=== PATIENT | male | born 1970 | race Caucasian/White ===

== ENCOUNTER 2016-09-08 14:44 | Inpatient (IN) | payer MEDICARE, MEDICAID ==
[~2016-09-08] VITALS: Ht 172.7 cm; Wt 68.9 kg
[~2016-09-08 14:44] MED LIST: BENA25CA2 PO; CIPR-250 PO; FLAG500T PO; MINO10TAB PO; PERC5TAB6 PO; SENS60TA PO; TEMA7.5C PO; XANA0.25 PO; [UNRECOGNIZED DRUG - OTHER] PO
[2016-09-08] MEDS ORDERED: VITA50003 PO (14:59)
[2016-09-08] MEDS ORDERED: CINA30TA PO (14:59)
[2016-09-08] MEDS ORDERED: CALC1CAP PO (14:59)
[2016-09-08] MEDS ORDERED: MORPHINE 4 MG/ML 1ML SYRINGE IV ONE (18:00)
[2016-09-08] MEDS ORDERED: MINO25TA PO (18:20)
[2016-09-08] MEDS ORDERED: TEMA30CA PO (18:21)
[2016-09-08 18:22] LABS: BASO % 0.6 % (0.0-1.0); EOS # 0.3 K/mm3 (0.0-0.50); LARGE UNSTAINED CELL # 0.1 K/mm3 (0.0-0.4); LARGE UNSTAINED CELL % 1.2 % (0.0-4.0); LYMPH # 1.4 K/mm3 (1.5-4.5); LYMPH % 20.8 % (24.0-44.0); MEAN CORPUSCULAR HEMOGLOBIN 31.4 pg (27.0-33.0); MEAN CORPUSCULAR HGB CONC 32.4 g/dl (32.0-36.5); MEAN CORPUSCULAR VOLUME 96.8 fl (80.0-96.0); MONO # 0.3 K/mm3 (0.0-0.8); MONO % 4.8 % (0.0-5.0); NEUTROPHILS # 4.4 K/mm3 (1.8-7.7); NEUTROPHILS % 67.5 % (36.0-66.0); PLATELET COUNT, AUTOMATED 186 k/mm3 (150-450); RED CELL DISTRIBUTION WIDTH 15.6 % (11.5-14.5); WHITE BLOOD COUNT 6.6 K/mm3 (4.0-10.0)
[2016-09-08 18:47] LABS: CALCIUM LEVEL 8.9 MG/DL (8.5-10.1); CREATININE FOR GFR 13.2 MG/DL (0.70-1.30); GLOMERULAR FILTRATION RATE 4.4 (>60); POTASSIUM SERUM 4.5 MEQ/L (3.5-5.1)
[2016-09-08 18:48] LABS: ALBUMIN 3.4 GM/DL (3.2-5.2); ALBUMIN/GLOBULIN RATIO 0.97 (1.00-1.93); BILIRUBIN,DIRECT 0.2 MG/DL (0.0-0.2); BILIRUBIN,TOTAL 0.5 MG/DL (0.2-1.0); TOTAL PROTEIN 6.9 GM/DL (6.4-8.2)
--- NOTE | 2016-09-08 19:05 | CR ---
DATE OF CONSULTATION: 09/08/2016 CONSULTATION REPORT FOR: The emergency department. REASON FOR CONSULTATION: Abdominal pain. HISTORY OF PRESENT ILLNESS: The patient is a generally pleasant 46-year-old man with a complicated medical history. He has longstanding end-stage renal disease on dialysis. 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 I met the patient first in 2014 when he was admitted with abdominal pain and proceeded with peritonitis and ultimately underwent exploratory laparotomy. The etiology of his peritonitis was not entirely clear, although I thought it might represent appendicitis. His appendix was removed at that time. He has also undergone a previous cholecystectomy. The patient normally does Thursday, Thursday and Thursday dialysis in [place]. He reports that for several weeks he has had some aching, right upper quadrant abdominal pain below the medial aspect of the costal margin. He was experiencing much more severe pain at about 05:30 this morning with severe more stabbing crampy-type pains in the same area. The pain spread across his upper abdomen. He had one episode of vomiting while on route to [facility]. He was initially transported to [facility] where he underwent evaluation with laboratory work and also had a noncontrast CT scan obtained. He received some narcotic analgesics with relief of his pain, though as they wore off his pain persisted. Because there was no opportunity for a surgical consultation at [facility] and because of his continuing need for dialysis, he was referred to [facility]. I was asked to evaluate the patient here in the emergency department. MEDICATIONS: Include: Minoxidil, temazepam, Percocet, Sensipar, ergocalciferol , and calcium acetate. ALLERGIES: He has a list of several allergies to antibiotics including KEFLEX, ERYTHROMYCIN, TRIMETHROPRIM, PIPERACILLIN, TAZOBACTAM, and SULFA DRUGS. PAST SURGICAL HISTORY: Includes: 1. Bilateral nephrectomies. 2. He has had two renal transplants with subsequent removal for failure. 3. He has undergone an exploratory laparotomy for peritonitis with appendectomy. 4. He has had a cholecystectomy. PAST MEDICAL HISTORY: Medical history is most significant for his ongoing end-stage renal disease for which he is receiving hemodialysis via left forearm fistula. He was due for dialysis today. REVIEW OF SYSTEMS: The patient denies any history of heart or significant lung disease. He has had no gastrointestinal (GI) issues. He does apparently have known diverticulosis. He denies any bone or joint issues. He has no history of seizures or stroke. PHYSICAL EXAMINATION: Reveals a somewhat thin man appearing older than his stated age of 46 years. He is alert, oriented and cooperative. SKIN: Warm and dry. Sclerae are anicteric. Mucous membranes are tacky. NECK: Supple without mass. HEART: Examination shows a regular rhythm and is borderline tachycardiac with occasional irregular beats. LUNGS: Show clear breath sounds bilaterally. ABDOMEN: Shows multiple scars including a paramedian scar in the right lower quadrant, a midline scar and several lower abdominal scars on the right and left sides. He does have a few bowel sounds present on auscultation though they do seem somewhat diminished. He has some fullness in the right subcostal area and reports tenderness on palpation in the right upper quadrant about 3 cm or so below the edge of the costal margin at the level of the medial aspect of the clavicle on the right. There is no tympany to percussion. There is no significant tenderness to percussion. The lower quadrants and left upper quadrant are soft and without significant tenderness. There is fullness on the right which may represent his liver edge. I do not identify a definite hernia. LABORATORY DATA: Laboratory studies from [facility] at 0830 show a white count of 9.4 with a differential count showing 60% neutrophils with 25% lymphocytes. Hemoglobin is 12 with a hematocrit of 37 and the platelet count is 242,000. Lipase is 146. Chemistry profile shows a sodium of 143, potassium 4.5, chloride 101, CO2 of 24, BUN of 80, creatinine of 12.3, and a glucose of 92. His total protein is 7.3 with an albumin of 3.9 and his liver function tests are normal. A CT scan was done at [facility]. I reviewed these images personally. I see no evidence of free air or free fluid. He has some marked vascular calcifications particularly in the iliac vessels. He has surgical clips in the gallbladder fossa with absence of the gallbladder. He has no evidence for obstruction. I do not identify any distinct abscess or abnormality in the right upper quadrant. I do note that the liver edge does extend below the costal margin significantly in the right upper quadrant. IMPRESSION: 1. Right upper quadrant pain of unclear etiology. 2. End-stage renal disease on maintenance hemodialysis. RECOMMENDATIONS: At this point, there is no evidence of any definite surgical problem within the abdomen. The etiology of his pain is unclear. His pain overlies the area of his right lobe of the liver which does extend below the costal margin. I do not think that his scan shows any inflammatory change in the colon or bowel inferior to the liver, although it is harder to lab coordinator given the noncontrast imaging. His laboratory studies are normal. I do not have any other studies that I would recommend. 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 PUJA
[2016-09-08] MEDS ORDERED: MORPHINE 2 MG/ML 1ML SYRINGE IV PRN (19:30)
[2016-09-08 19:44] VITALS: BP 150/104
[2016-09-08] MEDS ORDERED: SENOKOT S TAB PO SCH (21:00)
[2016-09-08] MEDS ORDERED: HEPARIN SOD (PORCINE) 5000 UNITS/ML VIAL SC SCH (22:00)
== END 2016-09-08 23:57 | disposition left against medical advice (07) | DRG 391 ==
LOC: M ED 17:40 → M ED INP 19:30
PROVIDERS: ADMIT Internal Medicine Nephrology; ATTEND Internal Medicine
DX: R10.11 Right upper quadrant pain (principal); N18.6 End stage renal disease; Z94.0 Kidney transplant status; Z79.899 Other long term (current) drug therapy; Z88.1 Allergy status to other antibiotic agents; Z88.2 Allergy status to sulfonamides; Z88.8 Allergy status to other drugs, medicaments and biological substances

== ENCOUNTER → 2016-10-09 | Outpatient (CLI) | payer MEDICARE, MEDICAID ==
[~2016-10-09] MED LIST changes: +CALC1CAP PO; +CINA30TA PO; +MINO25TA PO; +TEMA30CA PO; +VITA50003 PO
--- NOTE | 2016-10-09 13:31 | REP ---
BILATERAL LOWER EXTREMITY DUPLEX DOPPLER VENOUS ULTRASOUND WITH ULTRASOUND EVALUATION FOR VENOUS REFLUX: Real-time compression and duplex Doppler interrogation of bilateral lower extremity deep venous systems is performed. Bilaterally, common femoral, superficial femoral and popliteal veins are fully compressible with transducer pressure and demonstrate normal spontaneous and phasic flow without evidence of deep venous thrombosis. Evaluation for venous reflux in the right lower extremity demonstrates reflux in the common femoral vein and throughout the superficial femoral vein, with no reflux in the popliteal vein. There is an anterior accessory greater saphenous vein present with reflux noted only with the bed tipped. There is no reflux in the greater saphenous vein at the saphenofemoral junction, AP diameter of that vessel 5 mm. There is reflux in the greater saphenous vein at the mid thigh level, duration 0.9 seconds and diameter 3 mm, and also at the level of the knee for a duration of 0.5 seconds, AP dimension of that vessel 2 mm. There is no reflux in the lesser saphenous vein which measures 2 mm in diameter. On the left, there is reflux in the common femoral vein and throughout the superficial femoral vein, but no reflux is seen in the popliteal vein. There is no an anterior accessory greater saphenous vein on the left. There is no reflux in any portion of the greater saphenous vein, AP diameter at the saphenofemoral junction 3 mm, at the mid thigh and at the knee both 2 mm in diameter. There is reflux in the lesser saphenous vein for a duration of 4.2 seconds, AP diameter of that vessel is 3 mm. Signed by Raghu Torres MD 10/09/2016 03:35 P
== END ==
LOC: M RAD 11:02
PROVIDERS: ATTEND Surgery Vascular Surgery
DX: R22.43 Localized swelling, mass and lump, lower limb, bilateral (principal)

== ENCOUNTER → 2016-11-26 | Day surgery (SDC) | payer MEDICARE, MEDICAID ==
[~2016-11-26] VITALS: Ht 174 cm; Wt 68.4 kg
[~2016-11-26] MED LIST changes: +D5W/0.9% SODIUM CHLORIDE 1,000 ML IV SCH; +ESCI10TA2 PO; +MINO10TA PO; -MINO10TAB PO; +MINO2.5T PO; -MINO25TA PO; +PERC5TAB12 PO; -PERC5TAB6 PO; +VITA1CAP40 PO; -VITA50003 PO
[2016-11-26 13:44] VITALS: BP 126/62
== END | disposition home or self-care (01) ==
LOC: M SDC 12:58
PROVIDERS: ATTEND Surgery Vascular Surgery
DX: T82.838A Hemorrhage due to vascular prosthetic devices, implants and grafts, initial encounter (principal); Z53.29 Procedure and treatment not carried out because of patient's decision for other reasons

== ENCOUNTER 2022-02-12 06:25 | Day surgery (SDC) | payer MEDICARE, MEDICAID ==
[~2022-02-12] VITALS: Ht 172.7 cm; Wt 67.1 kg
[~2022-02-12 06:25] MED LIST changes: +BSS IRRIG/VANCO(10MG)/TOBRA(5MG)/EPINEPH(1:1000-0.5CC)500ML BAG-ORONLY IR ONE; -CINA30TA PO; +CINA30TA4 PO; +CYCLOPENTOLATE 1% OPHTH SOLN 2 ML BTL OS SCH; -D5W/0.9% SODIUM CHLORIDE 1,000 ML IV SCH; +DIGO0.123 PO; +ESCI10TA16 PO; -ESCI10TA2 PO; +FOLI1TAB11 PO; +LEVO75TA4 PO; +LIDOCAINE 3.5 % 1ML OPHTH TOPICAL GEL OU ONE; +MAGN400T33 PO; +METO1TAB87 PO; +OFLOXACIN 0.3 % (OCUFLOX) OPTH SOL 5ML OS ONE; +OLAN1TAB20 PO; +PANT40TA29 PO; +PARO20TA3 PO; +PHENYLEPHRINE 2.5% OPHTH SOL 2ML OS SCH; +PHENYLEPHRINE HCL 10 % OPHTH. SOL 5ML OS PRN; +TEMA15CA2 PO; +TROPICAMIDE 1% OPHTH SOLN 2ML OS SCH; +TYLE650T38 PO; -VITA1CAP40 PO; +VITA50005 PO
[2022-02-12] MEDS ORDERED: LIDOCAINE 1% SDV 5ML VIAL As Ordered ONE ×2 (06:37→07:13)
[2022-02-12] MEDS ORDERED: MIDAZOLAM INJ 2MG/2ML VIAL (J2250 PER 1MG) As Ordered ONE (07:15)
[2022-02-12] MEDS ORDERED: fentaNYL 100 MCG/2 ML INJECTION As Ordered ONE (07:15)
[2022-02-12] MEDS ORDERED: ePHEDrine SULFATE 25 MG/5 ML(5MG/ML) SYRINGE As Ordered ONE (08:01)
[2022-02-12 08:20] VITALS: BP 105/54
== END 2022-02-12 08:34 | disposition home or self-care (01) ==
LOC: M SDC 06:25
PROVIDERS: ATTEND Ophthalmology
DX: H25.12 Age-related nuclear cataract, left eye (principal); I48.91 Unspecified atrial fibrillation; N18.6 End stage renal disease; I12.0 Hypertensive chronic kidney disease with stage 5 chronic kidney disease or end stage renal disease; F41.9 Anxiety disorder, unspecified; Z86.16 Personal history of COVID-19; F12.10 Cannabis abuse, uncomplicated; F17.210 Nicotine dependence, cigarettes, uncomplicated; Z88.2 Allergy status to sulfonamides; Z88.1 Allergy status to other antibiotic agents
CPT/HCPCS: 36415; 66984; 84132; J2250; J3010; V2632

== ENCOUNTER 2022-03-05 09:27 | Day surgery (SDC) | payer MEDICARE, MEDICAID ==
[~2022-03-05] VITALS: Ht 174 cm; Wt 63.5 kg
[~2022-03-05 09:27] MED LIST changes: +CEFUROXIME 1MG/0.1ML INTRACAMERAL INJ As Ordered ONE; +CYCLOPENTOLATE 1% OPHTH SOLN 2 ML BTL OD SCH; -CYCLOPENTOLATE 1% OPHTH SOLN 2 ML BTL OS SCH; +LIDOCAINE 1% SDV 5ML VIAL As Ordered ONE; +OFLOXACIN 0.3 % (OCUFLOX) OPTH SOL 5ML OD ONE; -OFLOXACIN 0.3 % (OCUFLOX) OPTH SOL 5ML OS ONE; +PHENYLEPHRINE 2.5% OPHTH SOL 2ML OD SCH; -PHENYLEPHRINE 2.5% OPHTH SOL 2ML OS SCH; +PHENYLEPHRINE HCL 10 % OPHTH. SOL 5ML OD PRN; -PHENYLEPHRINE HCL 10 % OPHTH. SOL 5ML OS PRN; +TROPICAMIDE 1% OPHTH SOLN 2ML OD SCH; -TROPICAMIDE 1% OPHTH SOLN 2ML OS SCH
[2022-03-05] MEDS ORDERED: MIDAZOLAM INJ 2MG/2ML VIAL (J2250 PER 1MG) As Ordered ONE ×2 (11:31→11:35)
[2022-03-05] MEDS ORDERED: CEFUROXIME 1MG/0.1ML INTRACAMERAL INJ As Ordered ONE (11:45)
[2022-03-05 11:53] VITALS: BP 80/49
== END 2022-03-05 12:31 | disposition home or self-care (01) ==
LOC: M SDC 09:27
PROVIDERS: ATTEND Ophthalmology
DX: H25.11 Age-related nuclear cataract, right eye (principal); I48.91 Unspecified atrial fibrillation; I12.0 Hypertensive chronic kidney disease with stage 5 chronic kidney disease or end stage renal disease; N18.6 End stage renal disease; E03.9 Hypothyroidism, unspecified; K21.9 Gastro-esophageal reflux disease without esophagitis; F12.10 Cannabis abuse, uncomplicated; F17.210 Nicotine dependence, cigarettes, uncomplicated; Z79.899 Other long term (current) drug therapy; F41.9 Anxiety disorder, unspecified; Z88.1 Allergy status to other antibiotic agents; Z88.2 Allergy status to sulfonamides
CPT/HCPCS: 36415; 66984; 84132; J0697; J2250; V2632